=== PATIENT | female | born 1940 | race Caucasian/White ===

== ENCOUNTER 2017-09-12 17:48 | Emergency (ER) | payer MEDICARE ==
--- NOTE | 2017-09-12 18:57 | RAD ---
Indication: Fall, facial injury with epistaxis. CT of the facial bones was obtained in the axial plane. Sagittal and coronal reconstructed images were obtained. There is mildly comminuted fracture of the distal nasal arch more prominent on the left than on the right with minimal depression. The remainder of the nasal bones is unremarkable. Opacification of the mastoid air cells is noted. The maxillary sinuses are clear. The frontal sinuses demonstrates no fracture. The skull base, mastoid air cells show no fracture. The mandible and visualized cervical spine demonstrates no fracture. The maxilla including the pterygoid plates demonstrate no fracture. IMPRESSION: Mildly comminuted fracture of the left nasal arch anteriorly with minimal depression.
--- NOTE | 2017-09-12 19:45 | ED ---
Throat Pain/Nasal Congestion - HPI Summary HPI Summary: 16 female presents ER with complaints of sustaining a fall and hitting her face just prior to arrival. Patient has been experiencing epistaxis. Along with swelling and some bruising over the nasal bridge. States she was walking tripped and fell hitting her face on the cement. Denies also consciousness. Is not on any anticoagulants. No vision changes, nausea, vomiting, headache. Denies neck or back pain. Has not taken any medication. Is in minimal discomfort. Past medical history includes hypertension and high cholesterol. No other injuries or complaints at this time. - History of Current Complaint Chief Complaint: EDFacialInjury Time Seen by Provider: 09/12/17 18:14 Hx Obtained From: Patient Onset/Duration: Sudden Onset Severity: Mild Associated Signs And Symptoms: Positive: Nasal Discharge - Epistaxis - Allergies/Home Medications Allergies/Adverse Reactions: Allergies Allergy/AdvReac Type Severity Reaction Status Date / Time bacitracin Allergy Rash Verified 09/12/17 18:12 Home Medications: Home Medications Atorvastatin* [Lipitor*] 10 mg PO DAILY 09/12/17 [History Confirmed 09/12/17] Calcium Citrate/Vitamin D3 [Calcium Citrate - Vit D Tablet] 1 each PO DAILY 10/23 [History Confirmed 09/12/17] Cholecalciferol TAB* [Vitamin D TAB*] 1,000 unit PO DAILY 09/12/17 [History Confirmed 09/12/17] Conjugated Estrogens VAG CM* [Premarin VAG CREAM*] 1 applic VAGINAL WEEKLY 09/12 [History Confirmed 09/12/17] Denosumab(NF) [Prolia(NF)] 60 mg SC .EVERY SIX WEEKS 09/12/17 [History Confirmed 09/12/17] Esomeprazole(NF) [NEXium(NF)] 20 mg PO DAILY 09/12/17 [History Confirmed ] Glucosamine/D3/Boswellia Evelia [Osteo Bi-Flex Tablet] 2 each PO DAILY 09/12/17 [ History Confirmed 09/12/17] Lisinopril TAB* [Prinivil TAB*] 10 mg PO DAILY 09/12/17 [History Confirmed 09/12] Metoprolol Succinate XL TAB* [Toprol XL TAB*] 50 mg PO DAILY 09/12/17 [History Confirmed 09/12/17] Multivit-Min/Iron/Folic/Lutein [Centrum Silver Women Tablet] 1 each PO DAILY 10/23 [History Confirmed 09/12/17] [place]-3 Fatty Acids (Nf) [Fish Oil (NF)] 1,280 mg PO DAILY 09/12/17 [History Confirmed 09/12/17] Oxybutynin XL TAB* [Ditropan XL TAB*] 5 mg PO DAILY 09/12/17 [History Confirmed 09/12/17] ValACYclovir (*) [Valtrex 500 mg (*)] 2,000 mg PO Q12H PRN 09/12/17 [History Confirmed 09/12/17] PMH/Surg Hx/FS Hx/Imm Hx Cardiovascular History: Reports: Hx Hypercholesterolemia, Hx Hypertension Respiratory History: Reports: Hx Sleep Apnea GI History: Reports: Hx Gastroesophageal Reflux Disease Musculoskeletal History: Reports: Hx Osteoporosis, Other Musculoskeletal History - HX sciatic leg pain Sensory History: Reports: Hx Cataracts - bilateral, Hx Contacts or Glasses Opthamlomology History: Reports: Hx Cataracts - bilateral, Hx Contacts or Glasses - Cancer History Cancer Type, Location and Year: breast, 1991 Hx Chemotherapy: Yes Hx Radiation Therapy: Yes - Surgical History Surgery Procedure, Year, and Place: 1991 - partial mastectomy. 06/2008 [facility] – [place], [place]- ( right) cataract. 12/2010 [facility] [place], [place]- (left) cataract. ovarian dermoid. tonsils - Immunization History Immunizations Up to Date: Yes Infectious Disease History: No Infectious Disease History: Denies: Traveled Outside the [place] in Last 30 Days - Social History Alcohol Use: Occasionally Substance Use Type: Reports: None Smoking Status (MU): Never Smoked Tobacco Review of Systems Constitutional: Negative Eyes: Negative Positive: Epistaxis, Other - nasal swelling and pain Cardiovascular: Negative Respiratory: Negative Gastrointestinal: Negative Musculoskeletal: Negative Skin: Negative Neurological: Negative All Other Systems Reviewed And Are Negative: Yes Physical Exam Triage Information Reviewed: Yes Vital Signs On Initial Exam: Initial Vitals Temp Pulse Resp BP Pulse Ox 97.9 F 64 18 167/95 96 09/12/17 17:58 09/12/17 17:58 09/12/17 17:58 09/12/17 17:58 09/12/17 17:58 Elevated BP noted patient early on medication for hypertension improved at discharge Vital Signs Reviewed: Yes Appearance: Positive: Well-Appearing, No Pain Distress, Well-Nourished Skin: Positive: Warm, Skin Color Reflects Adequate Perfusion, Dry, Erythema @ - 2 lesions noted over right eyebrow and right maxillary bone of the face. Negative: Cold, Numb, Cyanosis @, Pale Head/Face: Positive: Other - Moderate edema and bruising over nasal bone with tenderness to palpation septum appears intact no raccoon eyes or fletcher signs no hematomas or signs of scalp trauma no tenderness to remaining facial bones Eyes: Positive: Normal, EOMI, NEHEMIAH, Conjunctiva Clear ENT: Positive: Normal ENT inspection, Hearing grossly normal, Pharynx normal, Nasal congestion - Blood noted in nares however not actively bleeding upon exam no sign of septal hematoma, TMs normal, Uvula midline, Other. Negative: Sinus tenderness Dental: Negative: Percussion Tenderness @ Neck: Positive: Supple, Nontender, No Lymphadenopathy. Negative: Tenderness @ Respiratory/Lung Sounds: Positive: Clear to Auscultation, Breath Sounds Present. Negative: Rales, Rhonchi, Wheezes Cardiovascular: Positive: Normal, RRR, Pulses are Symmetrical in both Upper and Lower Extremities. Negative: Murmur, Rub Abdomen Description: Positive: Nontender, Soft Bowel Sounds: Positive: Present Musculoskeletal: Positive: Normal, Strength/ROM Intact. Negative: Limited @, Interruption @, Abnormal @, Pain @, Edema Left, Edema Right Neurological: Positive: Normal, Sensory/Motor Intact, Alert, Oriented to Person Place, Time, CN Intact II-III, Reflexes Intact, NV Bundle Intact Distally, Normal Gait, Facial Symmetry, Speech Normal - [place] Coma Scale Best Eye Response: 4 - Spontaneous Best Motor Response: 6 - Obeys Commands Best Verbal Response: 5 - Oriented Coma Scale Total: 15 Diagnostics - Vital Signs Vital Signs Temp Pulse Resp BP Pulse Ox 09/12/17 19:02 161/88 09/12/17 18:41 54 162/84 98 09/12/17 18:03 63 95 09/12/17 18:02 61 167/95 93 09/12/17 17:58 97.9 F 64 18 167/95 96 - Laboratory Lab Statement: Any lab studies that have been ordered have been reviewed, and results considered in the medical decision making process. - CT maxillofacial CT Interpretation: Positive (See Comments) - Mildly comminuted fracture of the left nasal arch anteriorly with minimal depression. CT Interpretation Completed By: Radiologist EENT Course/Dx - Course Course Of Treatment: Patient did not want any pain management this time. Normal neuro exam and physical exam other than nasal bone edema in tenderness. No anticoagulants. Did not feel CT was required of the brain. CT maxillofacial obtained and showed comminuted nasal bone fracture. Epistaxis resolved upon exam. Instructed on the correct way to stop recurrent nasal bleeding. Apply ice, ibuprofen/Tylenol. Follow-up with ENT tomorrow. No other concerns at this time. Aware worsening signs and symptoms watch out for. Normal vitals and able to move air appropriately - Differential Diagnoses Differential Diagnoses: Contusion, Fracture, Trauma - Diagnoses Provider Diagnoses: Nasal bones, closed fracture, Contusion Discharge - Sign-Out/Discharge Documenting (check all that apply): Discharge/Admit/Transfer - Discharge Plan Condition: Stable Disposition: HOME Patient Education Materials: Nasal Fracture (ED) Referrals: Eliezer Amaya MD [Primary Care Provider] - Jose Angel Rudd MD [Medical Doctor] - Additional Instructions: Please call and make an appointment to have follow-up for nasal fracture with ENT tomorrow morning. Apply pressure lean forward and pinch bridge of nose if bleeding recurs. Ice bridge of nose frequently. Ibuprofen and Tylenol for pain and swelling. Any new or worsening symptoms please seek medical attention as we discussed ( vomiting, headache, uncontrolled bleeding, vision changes) Follow-up with primary care provider. - Billing Disposition and Condition Condition: STABLE Disposition: Home
[2017-09-12 20:35] VITALS: BP 158/91
== END 2017-09-12 20:36 | disposition home or self-care (01) ==
LOC: ED 17:48
DX: S02.2XXA Fracture of nasal bones, initial encounter for closed fracture (principal); W01.0XXA Fall on same level from slipping, tripping and stumbling without subsequent striking against object, initial encounter; Y92.9 Unspecified place or not applicable; I10 Essential (primary) hypertension; E78.00 Pure hypercholesterolemia, unspecified; Z88.3 Allergy status to other anti-infective agents; Z79.899 Other long term (current) drug therapy
CPT/HCPCS: 70486; 99283

== ENCOUNTER 2018-07-01 05:49 | Day surgery (SDC) | payer MEDICARE ==
[~2018-07-01 05:49] MED LIST: Buffered Lidocaine 1% SYRIN* 1 ML/SYRINGE INTRADERM ONE
[2018-07-01] MEDS ORDERED: Lactated Ringers 1000 ML Bag* 1,000 ML IV SCH (06:00)
[2018-07-01] MEDS ORDERED: Dexamethasone IV* 4 MG/ML 1 ML (4 MG) IV SLOW PU ONE (06:00)
[2018-07-01] MEDS ORDERED: Famotidine IV* 10 MG/ML 2 ML (20 mg) IV ONE (06:00)
[2018-07-01] MEDS ORDERED: ceFAZolin 2 GM in NS PREMIX(*) 2 GM/100 ML BAG IVPB ONE (06:06)
[2018-07-01] MEDS ORDERED: Buffered Lidocaine 1% SYRIN* 1 ML/SYRINGE INTRADERM ONE (06:06)
[2018-07-01] MEDS ORDERED: Dexamethasone IV* 4 MG/ML 1 ML (4 MG) ONE (06:06)
[2018-07-01] MEDS ORDERED: Famotidine IV* 10 MG/ML 2 ML (20 mg) ONE (06:06)
[2018-07-01] MEDS ORDERED: Bupivacaine 0.25% SDV PF* 10 ML VIAL INJ ONE (07:07)
[2018-07-01] MEDS ORDERED: Naloxone* 0.4 MG/ML 1 ML VIAL IV PRN (07:20)
[2018-07-01] MEDS ORDERED: Ondansetron INJ* 2 MG/ML VIAL ONE (07:23)
[2018-07-01] MEDS ORDERED: Midazolam* 1 MG/ML 2 ML VIAL (2 MG) ONE (07:23)
[2018-07-01] MEDS ORDERED: Propofol* 10 MG/ML 20 ML BTL ONE (07:23)
[2018-07-01 08:38] VITALS: BP 143/79
== END 2018-07-01 08:58 | disposition home or self-care (01) ==
LOC: OR 05:49
PROVIDERS: ATTEND Plastic Surgery
DX: G56.01 Carpal tunnel syndrome, right upper limb (principal); I10 Essential (primary) hypertension; R01.1 Cardiac murmur, unspecified; G47.33 Obstructive sleep apnea (adult) (pediatric); K21.9 Gastro-esophageal reflux disease without esophagitis; Z85.3 Personal history of malignant neoplasm of breast; Q21.1 Atrial septal defect
CPT/HCPCS: J0690; J1100; J2250; J2405; J2704; J3490